=== PATIENT | female | born 2000 | race Two or more races ===

== ENCOUNTER → 2021-03-31 | Outpatient (CLI) | payer OTHER ==
[2021-03-31 20:38] LABS: BASO # 0.1 10^3/uL (0.0-0.2); BASO % 0.8 % (0.0-1.0); EOS # 0.1 10^3/uL (0.0-0.5); EOS % 0.9 % (0.0-3.0); HEMATOCRIT 44.6 % (36.0-47.0); HEMOGLOBIN 14.8 g/dl (12.0-15.5); LYMPH # 2.7 10^3/uL (1.5-5.0); LYMPH % 36.3 % (24.0-44.0); MEAN CORPUSCULAR HEMOGLOBIN 31.8 pg (27.0-33.0); MEAN CORPUSCULAR HGB CONC 33.2 g/dl (32.0-36.5); MEAN CORPUSCULAR VOLUME 95.7 fl (80.0-96.0); MONO # 0.5 10^3/uL (0.0-0.8); MONO % 6.3 % (2.0-8.0); NEUTROPHILS # 4.2 10^3/uL (1.5-8.5); NEUTROPHILS % 55.3 % (36.0-66.0); PLATELET COUNT, AUTOMATED 368 10^3/uL (150-450); RED BLOOD COUNT 4.66 10^6/uL (4.00-5.40); WHITE BLOOD COUNT 7.5 10^3/uL (4.0-10.0)
[2021-03-31 21:15] LABS: THYROID STIMULATING HORMONE 0.602 uIU/ML (0.463-3.98)
[2021-03-31 21:16] LABS: PROLACTIN 10.3 NG/ML
== END ==
LOC: M WUC 15:27
PROVIDERS: ATTEND Physician Assistant
DX: N92.6 Irregular menstruation, unspecified (principal)

== ENCOUNTER → 2021-05-04 | Outpatient (CLI) | payer OTHER ==
--- NOTE | 2021-05-05 06:35 | REP ---
INDICATION: IRREGULAR MENSTRUATION COMPARISON: None. TECHNIQUE: Transabdominal pelvic ultrasound followed by transvaginal examination for better evaluation of the endometrium and adnexa with color Doppler evaluation of the ovaries. FINDINGS: Bladder is unremarkable and measures approximately 8.5 x 7.3 x 8.1 cm. Normal anteverted uterus measures 6.5 x 3.3 x 4.0 cm. The endometrial complex measures 4.2 mm thickness. Cluster of nabothian cysts are identified in the lower uterine segment measuring up to 8 mm diameter. Bilateral ovaries are normal in vascularity without evidence for torsion. Right ovary measures 4.2 x 2.4 x 2.4 cm; R I = 0.51. Left ovary measures 4.1 x 2.3 x 3.5 cm and includes homogeneously hyperechoic lesion measuring 2.1 x 1.7 x 1.5 cm; R I = 0.46. No pelvic fluid or adnexal mass lesion IMPRESSION: 1. Normal uterus and right ovary. 2. Hyperechoic lesion within the left ovary possible hemorrhagic cyst versus dermoid. <Electronically signed by Augusto Gallegos > 05/05/21 0631
== END ==
LOC: M RAD 11:50
PROVIDERS: ATTEND Physician Assistant
DX: N92.6 Irregular menstruation, unspecified (principal)